=== PATIENT | female | born 1990 | race Two or more races ===

== ENCOUNTER → 2020-02-05 11:56 | Outpatient (CLI) | payer OTHER ==
[~2020-02-05 11:56] MED LIST: CODE1TAB37 PO; Mylicon 125MG PO; SENNA S TABLET1 EACH PO
== END | disposition home or self-care (01) ==
LOC: LAB 11:56
PROVIDERS: ATTEND General Practice
DX: J11.1 Influenza due to unidentified influenza virus with other respiratory manifestations (principal); R05 Cough

== ENCOUNTER 2023-08-05 10:47 | Outpatient (CLI) | payer OTHER | END 2023-08-05 11:00 | disposition home or self-care (01) | LOC: RAD 10:47 | PROVIDERS: ATTEND Internal Medicine Rheumatology | DX: M17.9 Osteoarthritis of knee, unspecified (principal) ==